=== PATIENT | male | born 1980 | race Caucasian/White ===

== ENCOUNTER 2022-09-17 20:40 | Inpatient (IN) | payer OTHER, SELFPAY ==
[2022-09-17 20:59] VITALS: BP 145/82; PULSE 80; RESP 18; TEMP 36.6; O2SAT 96; BMI 35.9
[2022-09-17 21:46] LABS: Hemoglobin 13.3 g/dl (14.0-18.0); Mean Corpuscular HGB Conc 32.4 g/dl (31.0-36.0); Mean Corpuscular Hemoglobin 27.4 pg (27.0-33.0); Mean Corpuscular Volume 84.4 fL (80.0-98.0); Mean Platelet Volume 8.8 fL (9.4-12.4); Platelet Count 255 X10*3/uL (160-400); Red Blood Count 4.86 X10*6/uL (4.60-5.80); Red Cell Distribution Width 14.8 % (11.0-16.0); White Blood Count 8.8 X10*3/uL (4.8-10.8)
[2022-09-17 22:03] LABS: Anion Gap 14 (12-20); Blood Urea Nitrogen 17 mg/dL (9-16); Calcium 9.1 mg/dL (8.4-10.2); Carbon Dioxide 24 mmol/L (22-29); Chloride 104 mmol/L (96-108); Creatinine Clr Calc Pharmacy 144.9; Estimated Glomerular Filt Rate > 60; Glucose Random 118 mg/dL (60-115); Potassium 4.1 mmol/L (3.3-5.1); Sodium 138 mmol/L (135-145)
[2022-09-17 22:09] LABS: COVID-19 Test Negative (Negative); IDNOW Serial# 6674DD1D
[2022-09-17 22:17] LABS: Acetaminophen LAB < 17 mcg/mL (<30); Ethanol < 10 mg/dL; Salicylate < 5.0 mg/dL (15-30)
[2022-09-17 22:27] LABS: Amphetamine Screen Urine Not Detected (Not Detect); Barbiturates, Urine Not Detected (Not Detect); Benzodiazepines Screen Urine Not Detected (Not Detect); Cannabinoid Screen Urine POSITIVE (Not Detect); Cocaine Screen Urine Not Detected (Not Detect); Fentanyl, urine Not Detected (Not Detect); Opiate Screen Urine Not Detected (Not Detect); Phencyclidine Screen Urine Not Detected (Not Detect)
[2022-09-17] MEDS: LORazepam 1 MG TABLET 2 MG PO (23:06)
[2022-09-17 23:12] VITALS: BP 161/84; PULSE 82; RESP 16; TEMP 36.9; O2SAT 97
--- NOTE | 2022-09-17 23:44 | PC.NURSE ---
Patient reported anxiety 03/06, provider notified/ordered Ativan 2 mg PO/administered at 2306 pending effect, patient uses CPAP for sleep, charge nurse made aware/finishing department supervisor called okayed to use CPAP in ED POD and patient is on 1:1 for safety protocol, provider notified about CPAP use and okayed to have patientto use his own CPAP machine, med rec completed/pending provider's approval, behavior appropriate, care consult ordered/pending evaluation, will continue to monitor.
--- NOTE | 2022-09-17 23:45 | ED.PSYCH ---
HPI - Psych General Chief Complaint: Psychiatric Symptoms Stated Complaint: Crisis Time Seen by Provider: 09/17/22 21:10 Source: patient Mode of arrival: ambulatory Limitations: no limitations History of Present Illness HPI Narrative: 41-year-old male with history of insomnia, hypertension, sleep apnea, GERD presents for increasing anxiety, depression, suicidal ideations. Patient states he has no suicidal plan at this time. Denies homicidal ideation. Brought in by his . Patient is a reliable historian in tells me he has had chronic anxiety and depression since he has been a teenager. Patient states that he head palpitations, dizziness, trembling this morning when he woke up. Patient states that this happens daily. Patient states he is having visual and auditory hallucinations. Denies tactile hallucinations. Patient denies illicit drug use, however he said he tried marijuana edibles last week and did not like them. Patient states he only drinks socially and does not use tobacco products. Patient lives at home with his and kids and states he feels supported at home. Patient denies chest pain, shortness of breath, headache, nausea, vomiting, diarrhea, fever, chills. Related Data Home Medications Medication Instructions Recorded Confirmed omeprazole 40 mg capsule,delayed 1 cap PO BID 09/17/22 09/17/22 release trazodone 50 mg tablet 2 tab PO BEDTIME PRN Insomnia 09/17/22 09/17/22 venlafaxine 225 mg tablet,extended 1 tab PO DAILY 09/17/22 09/17/22 release 24 hr Allergies Allergy/AdvReac Type Severity Reaction Status Date / Time Histamine H2 Inhibitors Allergy Anxiety Verified 09/17/22 21:03 Review of Systems Review of Systems: Constitutional : No Weight loss, No Fever, No Chills, No Fatigue, No Malaise ENT/Mouth : No sore throat, No Rhinorrhea Eyes: No Eye Pain, No Swelling, No Redness Cardiovascular : No Chest Pain, No SOB, No Dyspnea on Exertion, No Orthopnea, No Edema, No Palpitations Respiratory : No Cough, No Sputum, No Wheezing Gastrointestinal : No Nausea, No Vomiting, No Diarrhea, No Constipation, No abdominal Pain, No Hematochezia, No Melena Genitourinary : No Dysuria, No Urinary Frequency, No Hematuria, Musculoskeletal : No joint pain, No Myalgias, No Joint Swelling Skin : No Skin Lesions, No rash Neuro : No Weakness, No Numbness, No Dizziness, No Headache Psych : + Anxiety/Panic, + Depression All other systems reviewed and are negative Yes all other systems are reviewed and are negative [facility] Past Medical History Attestation statement: The following information was validated with the patient. Source: old records reviewed and nursing notes reviewed Social History Social History Advance Directives: No Advance Directives Information Provided: Yes Physical Exam Vital Signs: Vital Signs: Last Vital Signs Temp 98.5 F 09/17/22 23:12 Pulse 82 09/17/22 23:12 Resp 16 09/17/22 23:12 BP 161/84 H 09/17/22 23:12 Pulse Ox 97 09/17/22 23:12 O2 Del Method 09/17/22 23:12 BMI result Body Mass Index 35.9 vss Appearance: Alert.? Oriented X3.? No acute distress.? Head: Normocephalic, atraumatic, no step-offs or deformities Eyes: Pupils equal, round and reactive to light.? Neck: Normal inspection.? Neck supple.? CVS: Normal heart rate and rhythm.? Pulses normal.? Respiratory: No respiratory distress.? Breath sounds normal.? Abdomen: Soft and nontender.? Skin: Skin warm and dry.? Normal skin color.? Normal skin turgor.? Extremities: No calf ttp. 5/5 strength to bilateral upper and lower extremities Neuro: Oriented X 3.? No motor deficit.? No sensory deficit. CN 2-12 intact Course Reevaluation(s) Reevaluation #1: Normocytic anemia noted on CBC with no other findings. Chemistry with no new abnormalities that would require intervention. I wanted checked in the area negative for acetaminophen salicylates and ethanol. COVID negative At this time patient will be placed in observation as we will be allowing Behavioral Health more time to see him. At time of observation started patient was calm and cooperative with stable vital signs. Time: 00:24 Medications Administered Discontinued Medications Generic Name Dose Route Start Last Admin Trade Name Freq PRN Reason Stop Dose Admin Lorazepam 2 mg 09/17/22 22:58 09/17/22 23:06 Lorazepam 1 Mg Tablet PO 09/17/22 22:59 2 mg ONCE STA Administration Medical Decision Making Medical Decision Making MDM Narrative: 41-year-old male presenting with suicidal ideations, anxiety, and panic. Physical exam benign Likely panic attack versus anxiety. Less likely electrolyte imbalances, metabolic disturbances Plan: Labs, medical clearance, evaluation by the care team Differential Diagnosis Differential Diagnoses: The differential diagnosis associated with the presentation includes Likely panic attack versus anxiety. Less likely electrolyte imbalances, metabolic disturbances Admission/Observation Consideration of admission/observation: Escalation of care including admission/observation considered Admission unlikely Lab Data MDM Lab Attestation statement: I reviewed the patient's lab results. 09/17/22 21:37 09/17/22 21:37 Labs: Lab Results 09/17/22 09/17/22 09/17/22 Range/Units 21:37 21:37 21:37 WBC 8.8 (4.8-10.8) X10*3/uL RBC 4.86 (4.60-5.80) X10*6/uL Hgb 13.3 L (14.0-18.0) g/dl Hct 41.0 L (42.0-52.0) % MCV 84.4 (80.0-98.0) fL MCH 27.4 (27.0-33.0) pg MCHC 32.4 (31.0-36.0) g/dl RDW 14.8 (11.0-16.0) % Plt Count 255 (160-400) X10*3/uL MPV 8.8 L (9.4-12.4) fL Absolute Nucleated RBC 0.000 (0.0-0.012) X10*3/uL Nucleated RBC % (auto) 0.0 (0.0-0.2) /100WBC Sodium 138 (135-145) mmol/L Potassium 4.1 (3.3-5.1) mmol/L Chloride 104 (96-108) mmol/L Carbon Dioxide 24 (22-29) mmol/L Anion Gap 14 (12-20) BUN 17 H (9-16) mg/dL Creatinine 0.95 (0.5-1.4) mg/dL Estim Creat Clear Calc 144.9 Estimated GFR > 60 Random Glucose 118 H (60-115) mg/dL Calcium 9.1 (8.4-10.2) mg/dL Salicylates (15-30) mg/dL Urine Opiates Screen (Not Detect) Urine Fentanyl Screen (Not Detect) Acetaminophen (<30) mcg/mL Ur Barbiturates Screen (Not Detect) Ur Phencyclidine Scrn (Not Detect) Ur Amphetamines Screen (Not Detect) U Benzodiazepines Scrn (Not Detect) Urine Cocaine Screen (Not Detect) U Marijuana (THC) Screen (Not Detect) Ethyl Alcohol mg/dL COVID-19 ([place]) Negative (Negative) COVID-19 Clin Com See Note 09/17/22 09/17/22 Range/Units 21:37 22:04 WBC (4.8-10.8) X10*3/uL RBC (4.60-5.80) X10*6/uL Hgb (14.0-18.0) g/dl Hct (42.0-52.0) % MCV (80.0-98.0) fL MCH (27.0-33.0) pg MCHC (31.0-36.0) g/dl RDW (11.0-16.0) % Plt Count (160-400) X10*3/uL MPV (9.4-12.4) fL Absolute Nucleated RBC (0.0-0.012) X10*3/uL Nucleated RBC % (auto) (0.0-0.2) /100WBC Sodium (135-145) mmol/L Potassium (3.3-5.1) mmol/L Chloride (96-108) mmol/L Carbon Dioxide (22-29) mmol/L Anion Gap (12-20) BUN (9-16) mg/dL Creatinine (0.5-1.4) mg/dL Estim Creat Clear Calc Estimated GFR Random Glucose (60-115) mg/dL Calcium (8.4-10.2) mg/dL Salicylates < 5.0 L (15-30) mg/dL Urine Opiates Screen Not Detected (Not Detect) Urine Fentanyl Screen Not Detected (Not Detect) Acetaminophen < 17 (<30) mcg/mL Ur Barbiturates Screen Not Detected (Not Detect) Ur Phencyclidine Scrn Not Detected (Not Detect) Ur Amphetamines Screen Not Detected (Not Detect) U Benzodiazepines Scrn Not Detected (Not Detect) Urine Cocaine Screen Not Detected (Not Detect) U Marijuana (THC) Screen POSITIVE H (Not Detect) Ethyl Alcohol < 10 mg/dL COVID-19 ([place]) (Negative) COVID-19 Clin Com Core Measures AMI core measures followed: Yes Measure exclusions: not indicated Critical Care Time Critical Care Time Critical Care Time: No Discharge Plan Discharge Clinical Impression: Depression, Suicidal ideation, Acute anxiety Patient Disposition: Still a Patient Prescriptions: No Action trazodone 50 mg tablet 2 tab PO BEDTIME PRN (Reason: Insomnia) omeprazole 40 mg capsule,delayed release(DR/EC) 1 cap PO BID venlafaxine 225 mg tablet extended release 24hr 1 tab PO DAILY Interventions: [place]-Suicide Risk Severity Scale Last Done: 09/17/22 23:00
--- NOTE | 2022-09-18 01:49 | MHC.CARE ---
Pt was evaluated by the CARE Team and an Voluntary inpatient bedsearch at this time.
[2022-09-18 08:44] VITALS: BP 160/80; PULSE 81; RESP 17; TEMP 37.1; O2SAT 96
[2022-09-18] MEDS: Venlafaxine HCl ER 75 MG CAP.ER.24H 225 MG PO (10:30)
--- NOTE | 2022-09-18 10:37 | PC.NURSE ---
9 am med just received from pharmacy
[2022-09-18] MEDS: LORazepam 1 MG TABLET 2 MG PO ×2 (10:41→15:28)
--- NOTE | 2022-09-18 14:28 | PC.NURSE ---
Pt c/o anxiety. Reassured pt. Will call admitting unit to see when he will be going up
--- NOTE | 2022-09-18 14:40 | PC.NURSE ---
Report to [facility] on [facility].
[2022-09-18 18:54] VITALS: BP 179/99; PULSE 95; RESP 20; TEMP 36.4; O2SAT 96
[2022-09-18 18:58] VITALS: BMI 51.0
[2022-09-18] MEDS: Omeprazole 40 MG CAPSULE.DR PO (22:25)
[2022-09-18] MEDS: chlorproMAZINE HCl 100 MG TABLET PO (22:25)
--- NOTE | 2022-09-19 00:34 | PC.ADMIT ---
Pt admitted to [facility] [place] [facility] [place] 1830 for increased SI w/worsening depression and anxiety interfering with functioning. Pt reports his venlafaxine was recently increased for depression and since then he has had unmanageable anxiety with racing thoughts, AH/VH, and suicidal thoughts. Pt reports these are new for him; he hears AH of background chatter/indistinguishable voices, as well as footsteps and doors opening, and sees VH of shadows. He reports poor sleep with nightmares, overeating/binge eating, inability to get out of bed or do ADLs. He has no hx substance abuse, rare etoh use. Family hx - sister has bipolar, mother with anxiety, father with depression and ECT treatment. PMhx includes sleep apnea (has CPAP), HTN, GERD, and asthma. Denies current SI/HI/AVH. Pt motivated for treatment and is very grateful for help.
[2022-09-19 06:00] VITALS: BP 154/85; PULSE 91; RESP 16; TEMP 36.6; O2SAT 94
[2022-09-19 07:00] VITALS: BMI 50.5
[2022-09-19] MEDS: Venlafaxine HCl ER 75 MG CAP.ER.24H 225 MG PO (08:42)
[2022-09-19] MEDS: Omeprazole 40 MG CAPSULE.DR PO ×2 (08:42→22:09)
[2022-09-19 09:53] LABS: Estimated Average Glucose 137 mg/dL; Hemoglobin A1c % 6.4 %
[2022-09-19 10:13] LABS: Alanine Aminotransferase 43 U/L (0-40); Albumin Level 4.4 g/dL (3.5-5.0); Alkaline Phosphatase 115 U/L (39-117); Anion Gap 16 (12-20); Aspartate Amino Transferase 23 U/L (5-37); Bilirubin Total 0.5 mg/dL (0.0-1.0); Blood Urea Nitrogen 18 mg/dL (9-16); Calcium 9.2 mg/dL (8.4-10.2); Carbon Dioxide 26 mmol/L (22-29); Chloride 102 mmol/L (96-108); Cholesterol 263 mg/dL; Creatinine Clr Calc Pharmacy 182.5; Estimated Glomerular Filt Rate > 60; Glucose Fasting 151 mg/dL (60-99); HDL Cholesterol 41 mg/dL; LDL Cholesterol Calculated 176 mg/dl; Potassium 4.4 mmol/L (3.3-5.1); Sodium 140 mmol/L (135-145); Triglycerides 231 mg/dL
--- NOTE | 2022-09-19 10:32 | P.HPPS_ITS ---
HPI Date of Service: 09/19/22 Chief Complaint: Crisis Sources of Information: patient interviewed, chart reviewed and crisis/core team assessment reviewed HPI Subjective Notes: [place] Warning (given and shows understanding) and Conditional Voluntary Narrative: Mr. Duke is a 41 year-old male with hx of MDD who self presented to [facility] reporting increase anxiety, racing thoughts, suicidal ideation with fleeting thoughts of cutting himself. He also reported seeing shadows which he was aware were not there whic is new for the past 1 month or so on and off. He reports using edibles, but more than a month ago. He also reports recent increase in Effexor to 225mg po daily 3-4 weeks ago, which in turn seemed to have increase his anxiety. His utox is positive for cannabis. On the unit, pt presents as very anxious and restless. He reports poor sleep and poor appetite. He reports not feeling comfortable being in milieu as he is feeling restless but states that when he tried to lay down in bed he starts having racing thoughts. He reports anxious mood and restlessness seems to trigger suicidal thoughts more than the depression. He denies VH/AH now, but states few days ago he thought he was seeing someone but then turned and it wasn't there. He denies any other substance use. He reports he has not had suicidal thoughts since he was a teen. He denies hx of suicide attempts. He was laid off his job but states he is positive he will find a new one once he feels better. He reports his is very supportive, no other sources of stress although struggling financially after he lost his job. Past Psychiatric History: Inpt: none OP: [facility] Past medication trials: wellbutrin, effexor, seroquel (RLS) Suicide attempt: denies Medical Evaluation Reviewed: Yes Diagnostics Vital Signs (24Hr): Vital Signs - 24 hr 09/18/22 18:54 09/19/22 06:00 Temperature 97.6 F 97.8 F Pulse Rate 95 91 Respiratory Rate 20 16 Blood Pressure 179/99 H 154/85 H Pulse Oximetry 96 94 Oxygen Delivery Method Room Air Room Air BMI result Body Mass Index 50.5 Labs 09/17/22 21:37 09/19/22 09:25 Labs: Laboratory Results - last 48 hr 09/17/22 09/17/22 09/17/22 21:37 21:37 21:37 WBC 8.8 RBC 4.86 Hgb 13.3 L Hct 41.0 L MCV 84.4 MCH 27.4 MCHC 32.4 RDW 14.8 Plt Count 255 MPV 8.8 L Absolute Nucleated RBC 0.000 Nucleated RBC % (auto) 0.0 Sodium 138 Potassium 4.1 Chloride 104 Carbon Dioxide 24 Anion Gap 14 BUN 17 H Creatinine 0.95 Estim Creat Clear Calc 144.9 Estimated GFR > 60 Random Glucose 118 H Fasting Glucose Estimat Average Glucose Hemoglobin A1c % Calcium 9.1 Total Bilirubin AST ALT Alkaline Phosphatase Total Protein Albumin Triglycerides Cholesterol LDL Cholesterol, Calc HDL Cholesterol Salicylates Urine Opiates Screen Urine Fentanyl Screen Acetaminophen Ur Barbiturates Screen Ur Phencyclidine Scrn Ur Amphetamines Screen U Benzodiazepines Scrn Urine Cocaine Screen U Marijuana (THC) Screen Ethyl Alcohol COVID-19 ([place]) Negative COVID-19 [employer] Com See Note 09/17/22 09/17/22 09/19/22 21:37 22:04 09:25 WBC RBC Hgb Hct MCV MCH MCHC RDW Plt Count MPV Absolute Nucleated RBC Nucleated RBC % (auto) Sodium 140 Potassium 4.4 Chloride 102 Carbon Dioxide 26 Anion Gap 16 BUN 18 H Creatinine 0.91 Estim Creat Clear Calc 182.5 Estimated GFR > 60 Random Glucose Fasting Glucose 151 H Estimat Average Glucose Hemoglobin A1c % Calcium 9.2 Total Bilirubin 0.5 AST 23 ALT 43 H Alkaline Phosphatase 115 Total Protein 7.0 Albumin 4.4 Triglycerides 231 Cholesterol 263 LDL Cholesterol, Calc 176 HDL Cholesterol 41 Salicylates < 5.0 L Urine Opiates Screen Not Detected Urine Fentanyl Screen Not Detected Acetaminophen < 17 Ur Barbiturates Screen Not Detected Ur Phencyclidine Scrn Not Detected Ur Amphetamines Screen Not Detected U Benzodiazepines Scrn Not Detected Urine Cocaine Screen Not Detected U Marijuana (THC) Screen POSITIVE H Ethyl Alcohol < 10 COVID-19 ([place]) [employer] Com 09/19/22 09:25 WBC RBC Hgb Hct MCV MCH MCHC RDW Plt Count MPV Absolute Nucleated RBC Nucleated RBC % (auto) Sodium Potassium Chloride Carbon Dioxide Anion Gap BUN Creatinine Estim Creat Clear Calc Estimated GFR Random Glucose Fasting Glucose Estimat Average Glucose 137 Hemoglobin A1c % 6.4 Calcium Total Bilirubin AST ALT Alkaline Phosphatase Total Protein Albumin Triglycerides Cholesterol LDL Cholesterol, Calc HDL Cholesterol Salicylates Urine Opiates Screen Urine Fentanyl Screen Acetaminophen Ur Barbiturates Screen Ur Phencyclidine Scrn Ur Amphetamines Screen U Benzodiazepines Scrn Urine Cocaine Screen U Marijuana (THC) Screen Ethyl Alcohol COVID-19 ([place]) COVID-19 Clin Com Meds/Allergies Meds Home Medications Medication Instructions Recorded Confirmed Type omeprazole 40 mg capsule,delayed 1 cap PO BID 09/17/22 09/17/22 History release trazodone 50 mg tablet 2 tab PO BEDTIME PRN Insomnia 09/17/22 09/17/22 History venlafaxine 225 mg tablet,extended 1 tab PO DAILY 09/17/22 09/17/22 History release 24 hr lisinopril 40 mg tablet 40 mg PO DAILY 09/19/22 09/19/22 History Allergies Allergies Allergy/AdvReac Type Severity Reaction Status Date / Time Histamine H2 Inhibitors Allergy Anxiety Verified 09/17/22 21:03 quetiapine [From Seroquel] AdvReac Intermediate RLS Verified 09/19/22 10:44 Mental Status Exam Mental Status Exam Narrative: Appearance: MO, casually groomed, fair hygiene in NAD Behavior: cooperative Psychomotor: no agitation or retardation noted Speech: clear, normal rate/rhythm/volume, spontaneous TP: linear TC: no signs of psychosis, feeling anxious and restless Mood: anxious Affect: congruent SI: passive HI: none AH/VH: not at the moment Delusions: none Insight/judgment: fair x 2. Memory/cog: alert, oriented x 3. Assessment & Plan Assessment & Plan (1) Mood disorder: Status: Acute Code(s): F39 - Unspecified mood [affective] disorder Plan Mr. Duke is a 41 year-old male with hx of MDD who has been presenting with increase anxious mood, restless, some visual hallucinations which he is aware are not there, increase depression and suicidal ideation in setting of recent increase of effexor and cannabinoid use (although pt reports over month ago). He was laid off his job in July and is having financial stressors. He reports is mostly anxious mood and restless triggering suicidal thoughts, which he thinks may be more related to increase in effexor. We discussed risks, benefits and alternative treatment options. He agreed to lower effexor back to 150mg po daily. Will add ativan prn as anxiety and restlessness more in control. PLAN 1. Admit to M3, CV, 15 minutes checks for safety 2. lower effexor to 150mg po daily. 3. add ativan 1mg po q4h prn anxious mood 4. Obtain collateral information 5. Aftercare planning. Patient educated on: diagnosis Reason for continued inpatient stay Substantial Risk for: harm to self and inability to function Statement Statement: I have reviewed the history and physical and performed a pertinent examination on my patient. No changes have occurred unless specified. If the History and Physical was not performed prior to admission, the Hospitalist's service will be consulted for completing the admission physical. Time Spent With Patient Time: Total time managing care of this patient today ____ minutes.
[2022-09-19 10:43] LABS: Folate 15.2 ng/mL (> or = 4.0); Thyroid Stimulating Hormone 1.32 uIU/mL (0.32-4.0); Vitamin B12 642 pg/mL (200-900)
[2022-09-19] MEDS: LORazepam 1 MG TABLET 2 MG PO (11:29)
[2022-09-19] MEDS: LORazepam 1 MG TABLET PO ×2 (17:38→20:01)
[2022-09-19] MEDS: chlorproMAZINE HCl 100 MG TABLET PO (22:09)
[2022-09-20 08:33] VITALS: BP 161/104; PULSE 82; RESP 18; TEMP 36.6; O2SAT 95
[2022-09-20] MEDS: Venlafaxine HCl ER 150 MG CAP.ER.24H PO (08:34)
[2022-09-20] MEDS: Omeprazole 40 MG CAPSULE.DR PO ×2 (08:34→21:35)
[2022-09-20] MEDS: LORazepam 1 MG TABLET PO ×4 (09:49→23:29)
--- NOTE | 2022-09-20 14:34 | HO.PSYCHPN ---
Subjective Subjective Date of Service: 09/20/22 Reason For Visit: Crisis Subjective Notes: Conditional Voluntary Interim History: Pt reports feeling less anxious. He reports he was able to sleep only during time that there was one to one and he was able to use CPAP. He denies SI/HI. No VH/AH. He reports he stills wakes up feeling very anxious and distress and feeling restless. He reports ativan works. Review of Systems Review of Systems Constitutional : No Weight loss, No Fever, No Chills, No Fatigue, No Malaise ENT/Mouth : No sore throat, No Rhinorrhea Eyes: No Eye Pain, No Swelling, No Redness Cardiovascular : No Chest Pain, No SOB, No Dyspnea on Exertion, No Orthopnea, No Edema, No Palpitations Respiratory : No Cough, No Sputum, No Wheezing Gastrointestinal : No Nausea, No Vomiting, No Diarrhea, No Constipation, No abdominal Pain, No Hematochezia, No Melena Genitourinary : No Dysuria, No Urinary Frequency, No Hematuria, Musculoskeletal : No joint pain, No Myalgias, No Joint Swelling Skin : No Skin Lesions, No rash Neuro : No Weakness, No Numbness, No Dizziness, No Headache Psych : + Anxiety/Panic, + Depression All other systems reviewed and are negative Yes all other systems are reviewed and are negative Mental Status Exam Mental Status Exam Narrative: Appearance: MO, casually groomed, fair hygiene in NAD Behavior: cooperative Psychomotor: no agitation or retardation noted Speech: clear, normal rate/rhythm/volume, spontaneous TP: linear TC: no signs of psychosis, feeling anxious and restless Mood: anxious Affect: congruent SI: passive HI: none AH/VH: not at the moment Delusions: none Insight/judgment: fair x 2. Memory/cog: alert, oriented x 3. Diagnostics Vital Signs (24Hr): Vital Signs - 24 hr 09/20/22 08:33 Temperature 97.8 F Pulse Rate 82 Respiratory Rate 18 Blood Pressure 161/104 H Pulse Oximetry 95 Oxygen Delivery Method Room Air BMI result Body Mass Index 50.5 Labs 09/17/22 21:37 09/19/22 09:25 Labs: Laboratory Results - last 48 hr 09/19/22 09/19/22 09:25 09:25 Sodium 140 Potassium 4.4 Chloride 102 Carbon Dioxide 26 Anion Gap 16 BUN 18 H Creatinine 0.91 Estim Creat Clear Calc 182.5 Estimated GFR > 60 Fasting Glucose 151 H Estimat Average Glucose 137 Hemoglobin A1c % 6.4 Calcium 9.2 Total Bilirubin 0.5 AST 23 ALT 43 H Alkaline Phosphatase 115 Total Protein 7.0 Albumin 4.4 Triglycerides 231 Cholesterol 263 LDL Cholesterol, Calc 176 HDL Cholesterol 41 Vitamin B12 642 Folate 15.2 TSH 1.32 Medications Medications Current Medications Acetaminophen (Acetaminophen 325 Mg Tablet) 650 mg PO Q6H PRN PRN Reason: Headache/Pain Mild Scale (1-3) Al Hydroxide/Mg Hydroxide (Magnesium Hydrox/Alum Hydrox 30 Ml Oral.Susp) 30 ml PO Q6H PRN PRN Reason: Heartburn/Nausea Albuterol Sulfate (Albuterol Sulfate 90 Mcg 8 Gm Inhaler) 1 puff INHALE RQ4H PRN PRN Reason: wheezing/SOB Chlorpromazine HCl (Chlorpromazine Hcl 100 Mg Tablet) 100 mg PO BEDTIME [facility] Last Admin: 09/19/22 22:09 Dose: 100 mg Hydroxyzine HCl (Hydroxyzine Hcl 25 Mg Tablet) 25 mg PO Q6H PRN PRN Reason: Anxiety Lorazepam (Lorazepam 1 Mg Tablet) 1 mg PO Q6H PRN PRN Reason: Anxiety Last Admin: 09/20/22 16:20 Dose: 1 mg Magnesium Hydroxide (Milk Of Magnesia 30 Ml Oral.Susp) 30 ml PO DAILY PRN PRN Reason: Constipation Omeprazole (Omeprazole 40 Mg Capsule.Dr) 40 mg PO BID@0730,2100 [facility] Last Admin: 09/20/22 08:34 Dose: 40 mg Trazodone HCl (Trazodone Hcl 100 Mg Tablet) 100 mg PO BEDTIME PRN PRN Reason: Insomnia Trazodone HCl (Trazodone Hcl 50 Mg Tablet) 50 mg PO BEDTIME PRN PRN Reason: Insomnia Venlafaxine HCl (Venlafaxine Hcl Er 75 Mg Cap.Er.24h) 75 mg PO DAILY [facility] Allergies Allergies Allergy/AdvReac Type Severity Reaction Status Date / Time Histamine H2 Inhibitors Allergy Anxiety Verified 09/17/22 21:03 quetiapine [From Seroquel] AdvReac Intermediate RLS Verified 09/19/22 10:44 Assessment & Plan Assessment & Plan (1) Mood disorder: Status: Acute Code(s): F39 - Unspecified mood [affective] disorder Plan Mr. Duke is a 41 year-old male with hx of MDD who has been presenting with increase anxious mood, restless, some visual hallucinations which he is aware are not there, increase depression and suicidal ideation in setting of recent increase of effexor and cannabinoid use (although pt reports over month ago). He was laid off his job in July and is having financial stressors. He reports is mostly anxious mood and restless triggering suicidal thoughts, which he thinks may be more related to increase in effexor. We discussed risks, benefits and alternative treatment options. He agreed to lower effexor back to 150mg po daily. Will add ativan prn as anxiety and restlessness more in control. PLAN 1. Admit to M3, CV, 15 minutes checks for safety 2. lower effexor to 150mg po daily. 3. add ativan 1mg po q4h prn anxious mood 4. Obtain collateral information 5. Aftercare planning. 09/20 continue taper off effexor as pt reports increase anxiety and restless. May consider different antidepressant pt states his OP provider considering bipolar type 2 dx. Reason for contiued inpatient stay Substantial Risk for: harm to self Time Spent With Patient Time: Total time managing care of this patient today ____ minutes.
[2022-09-20] MEDS: chlorproMAZINE HCl 100 MG TABLET PO (21:35)
[2022-09-20 21:55] VITALS: BP 166/82; PULSE 97; TEMP 36.6; O2SAT 97
[2022-09-21 06:00] VITALS: BP 170/106; PULSE 98; TEMP 36.7; O2SAT 97
[2022-09-21] MEDS: Omeprazole 40 MG CAPSULE.DR PO ×2 (08:55→20:54)
[2022-09-21] MEDS: LORazepam 1 MG TABLET PO ×3 (08:55→20:54)
[2022-09-21] MEDS: Venlafaxine HCl ER 75 MG CAP.ER.24H PO (08:55)
--- NOTE | 2022-09-21 09:00 | PC.NURSE ---
patient has lisinopril 40mg added to medication regimine.
[2022-09-21] MEDS: lisinopriL 40 MG TABLET PO (09:11)
[2022-09-21 12:14] VITALS: BP 132/84
[2022-09-21] MEDS: cloNIDine HCL 0.1 MG TABLET PO (15:02)
--- NOTE | 2022-09-21 19:49 | HO.PSYCHPN ---
Subjective Subjective Date of Service: 09/21/22 Reason For Visit: Crisis Interim History: anxious, wordy. c/o seroquel and remeron having caused akathisia. had bad akathisia last night, when hears thorazine has antihistamine activity decides he cannot take it, ever at a lower dose. discussion held around other options, not interested in controlled substances. pt agrees to trial of clonidine for anxiety, sleep, HTN, as it has no anti-histamine activity. also discuss his expectations around starting primary Tx for his stated Dx of bipolar disorder, which MD managed to defer until his attending returns on friday. per staff, very anxious, upset night prior to last re lack of CPAP, was demanding to leave immediately. eating well, visible, safe. c/o RLS last night. Mental Status Exam Mental Status Exam Narrative: Appearance: MO, casually groomed, fair hygiene in NAD Behavior: cooperative Psychomotor: no agitation or retardation noted Speech: clear, normal rate/rhythm/volume, spontaneous TP: linear TC: no signs of psychosis, feeling anxious and restless Mood: anxious Affect: congruent SI: passive HI: none AH/VH: not at the moment Delusions: none Insight/judgment: fair x 2. Memory/cog: alert, oriented x 3. Diagnostics Vital Signs (24Hr): Vital Signs - 24 hr 09/20/22 21:55 09/21/22 06:00 09/21/22 12:14 Temperature 97.8 F 98.1 F Pulse Rate 97 98 Blood Pressure 166/82 H 170/106 H 132/84 Pulse Oximetry 97 97 Oxygen Delivery Method Room Air Room Air BMI result Body Mass Index 50.5 Labs 09/17/22 21:37 09/19/22 09:25 Medications Medications Current Medications Acetaminophen (Acetaminophen 325 Mg Tablet) 650 mg PO Q6H PRN PRN Reason: Headache/Pain Mild Scale (1-3) Al Hydroxide/Mg Hydroxide (Magnesium Hydrox/Alum Hydrox 30 Ml Oral.Susp) 30 ml PO Q6H PRN PRN Reason: Heartburn/Nausea Albuterol Sulfate (Albuterol Sulfate 90 Mcg 8 Gm Inhaler) 1 puff INHALE RQ4H PRN PRN Reason: wheezing/SOB Chlorpromazine HCl (Chlorpromazine Hcl 25 Mg Tablet) 12.5 mg PO Q4H PRN PRN Reason: severe anxiety Clonidine HCl (Clonidine Hcl 0.1 Mg Tablet) 0.1 mg PO BID@0900,1500 [facility]; Protocol Last Admin: 09/21/22 15:02 Dose: 0.1 mg Clonidine HCl (Clonidine Hcl 0.2 Mg Tablet) 0.2 mg PO BEDTIME [facility]; Protocol Lorazepam (Lorazepam 1 Mg Tablet) 1 mg PO Q6H PRN PRN Reason: Anxiety Last Admin: 09/21/22 15:06 Dose: 1 mg Magnesium Hydroxide (Milk Of Magnesia 30 Ml Oral.Susp) 30 ml PO DAILY PRN PRN Reason: Constipation Omeprazole (Omeprazole 40 Mg Capsule.Dr) 40 mg PO BID@0730,2100 [facility] Last Admin: 09/21/22 08:55 Dose: 40 mg Trazodone HCl (Trazodone Hcl 100 Mg Tablet) 100 mg PO BEDTIME PRN PRN Reason: Insomnia Trazodone HCl (Trazodone Hcl 50 Mg Tablet) 50 mg PO BEDTIME PRN PRN Reason: Insomnia Venlafaxine HCl (Venlafaxine Hcl Er 75 Mg Cap.Er.24h) 75 mg PO DAILY [facility] Last Admin: 09/21/22 08:55 Dose: 75 mg Allergies Allergies Allergy/AdvReac Type Severity Reaction Status Date / Time Histamine H2 Inhibitors Allergy Anxiety Verified 09/17/22 21:03 quetiapine [From Seroquel] AdvReac Intermediate RLS Verified 09/19/22 10:44 Assessment & Plan Assessment & Plan (1) Mood disorder: Status: Acute Code(s): F39 - Unspecified mood [affective] disorder Plan Mr. Duke is a 41 year-old male with hx of MDD who has been presenting with increase anxious mood, restless, some visual hallucinations which he is aware are not there, increase depression and suicidal ideation in setting of recent increase of effexor and cannabinoid use (although pt reports over month ago). He was laid off his job in July and is having financial stressors. He reports is mostly anxious mood and restless triggering suicidal thoughts, which he thinks may be more related to increase in effexor. We discussed risks, benefits and alternative treatment options. He agreed to lower effexor back to 150mg po daily. Will add ativan prn as anxiety and restlessness more in control. PLAN 1. Admit to M3, CV, 15 minutes checks for safety 2. lower effexor to 150mg po daily. 3. add ativan 1mg po q4h prn anxious mood 4. Obtain collateral information 5. Aftercare planning. 09/20 continue taper off effexor as pt reports increase anxiety and restless. May consider different antidepressant pt states his OP provider considering bipolar type 2 dx. 09/21: akathisia from thorazine 100 at HS. DC thorazine 100 and start clonidine 0.1/0.1/0.2 for BP, insomnia, anxiety. DC lisinopril for now. Patient educated on: diagnosis, medication risk/benefits and medical condition Reason for contiued inpatient stay Substantial Risk for: inability to function and rapid decompensation Time Spent With Patient Time: Total time managing care of this patient today __35__ minutes.
[2022-09-21] MEDS: Albuterol Sulfate 90 MCG 8 GM INHALER 1 PUFF INHALE (20:53)
[2022-09-21] MEDS: cloNIDine HCL 0.2 MG TABLET PO (20:54)
[2022-09-21 21:16] VITALS: BP 145/92; PULSE 101; TEMP 36.3; O2SAT 100
[2022-09-22 06:00] VITALS: BP 160/84; PULSE 88; RESP 18; TEMP 36.6; O2SAT 96
[2022-09-22] MEDS: Venlafaxine HCl ER 75 MG CAP.ER.24H PO (08:03)
[2022-09-22] MEDS: Omeprazole 40 MG CAPSULE.DR PO ×2 (08:03→21:42)
[2022-09-22] MEDS: cloNIDine HCL 0.1 MG TABLET PO ×2 (08:03→14:17)
[2022-09-22] MEDS: LORazepam 1 MG TABLET PO ×4 (08:03→21:46)
[2022-09-22 12:41] VITALS: BP 140/82; PULSE 88
[2022-09-22] MEDS: cloNIDine HCL 0.1 MG TABLET 0.05 MG PO (13:09)
--- NOTE | 2022-09-22 16:18 | P.PNPSI_ITS ---
Subjective Subjective Date of Service: 09/22/22 Reason For Visit: Crisis Interim History: calm, cooperative. c/o ongoing anxiety, denies clonidine making him tired during the day. agreeable to increase clonidine to 0.15 BID and 0.2 at bedtime. states he fell asleep and slept well last night. c/o panic attacks during the day, asking for more frequent ativan. dosing changed from Q6H to be Q4H. per staff, pleasant. no dep, 5/10 anx yesterday. social at dinner. panic attack last NOC. felt well until noon today, when anxiety began to build. Mental Status Exam Mental Status Exam Narrative: Appearance: MO, casually groomed, fair hygiene in NAD Behavior: cooperative Psychomotor: no agitation or retardation noted Speech: clear, normal rate/rhythm/volume, spontaneous TP: linear TC: no signs of psychosis, feeling anxious and restless Mood: anxious Affect: congruent SI: passive HI: none AH/VH: not at the moment Delusions: none Insight/judgment: fair x 2. Memory/cog: alert, oriented x 3. Diagnostics Vital Signs (24Hr): Vital Signs - 24 hr 09/21/22 21:16 09/22/22 06:00 09/22/22 12:41 Temperature 97.3 F 97.8 F Pulse Rate 101 H 88 88 Respiratory Rate 18 Blood Pressure 145/92 H 160/84 H 140/82 H Pulse Oximetry 100 96 Oxygen Delivery Method Room Air Room Air BMI result Body Mass Index 50.5 Labs 09/17/22 21:37 09/19/22 09:25 Medications Medications Current Medications Acetaminophen (Acetaminophen 325 Mg Tablet) 650 mg PO Q6H PRN PRN Reason: Headache/Pain Mild Scale (1-3) Al Hydroxide/Mg Hydroxide (Magnesium Hydrox/Alum Hydrox 30 Ml Oral.Susp) 30 ml PO Q6H PRN PRN Reason: Heartburn/Nausea Albuterol Sulfate (Albuterol Sulfate 90 Mcg 8 Gm Inhaler) 1 puff INHALE RQ4H PRN PRN Reason: wheezing/SOB Last Admin: 09/21/22 20:53 Dose: 1 puff Chlorpromazine HCl (Chlorpromazine Hcl 25 Mg Tablet) 12.5 mg PO Q4H PRN PRN Reason: severe anxiety Clonidine HCl (Clonidine Hcl 0.2 Mg Tablet) 0.2 mg PO BEDTIME [facility]; Protocol Last Admin: 09/21/22 20:54 Dose: 0.2 mg Clonidine HCl (Clonidine Hcl 0.1 Mg Tablet) 0.15 mg PO BID@0900,1500 [facility]; Protocol Lorazepam (Lorazepam 1 Mg Tablet) 1 mg PO Q4H PRN PRN Reason: Anxiety Magnesium Hydroxide (Milk Of Magnesia 30 Ml Oral.Susp) 30 ml PO DAILY PRN PRN Reason: Constipation Omeprazole (Omeprazole 40 Mg Capsule.Dr) 40 mg PO BID@0730,2100 [facility] Last Admin: 09/22/22 08:03 Dose: 40 mg Trazodone HCl (Trazodone Hcl 100 Mg Tablet) 100 mg PO BEDTIME PRN PRN Reason: Insomnia Trazodone HCl (Trazodone Hcl 50 Mg Tablet) 50 mg PO BEDTIME PRN PRN Reason: Insomnia Venlafaxine HCl (Venlafaxine Hcl Er 75 Mg Cap.Er.24h) 75 mg PO DAILY [facility] Last Admin: 09/22/22 08:03 Dose: 75 mg Allergies Allergies Allergy/AdvReac Type Severity Reaction Status Date / Time Histamine H2 Inhibitors Allergy Anxiety Verified 09/17/22 21:03 quetiapine [From Seroquel] AdvReac Intermediate RLS Verified 09/19/22 10:44 Assessment & Plan Assessment & Plan (1) Mood disorder: Status: Acute Code(s): F39 - Unspecified mood [affective] disorder Plan Mr. Duke is a 41 year-old male with hx of MDD who has been presenting with increase anxious mood, restless, some visual hallucinations which he is aware are not there, increase depression and suicidal ideation in setting of recent increase of effexor and cannabinoid use (although pt reports over month ago). He was laid off his job in July and is having financial stressors. He reports is mostly anxious mood and restless triggering suicidal thoughts, which he thinks may be more related to increase in effexor. We discussed risks, benefits and alternative treatment options. He agreed to lower effexor back to 150mg po daily. Will add ativan prn as anxiety and restlessness more in control. PLAN 1. Admit to M3, CV, 15 minutes checks for safety 2. lower effexor to 150mg po daily. 3. add ativan 1mg po q4h prn anxious mood 4. Obtain collateral information 5. Aftercare planning. 09/20 continue taper off effexor as pt reports increase anxiety and restless. May consider different antidepressant pt states his OP provider considering bipolar type 2 dx. 09/21: akathisia from thorazine 100 at HS. DC thorazine 100 and start clonidine 0.1/0.1/0.2 for BP, insomnia, anxiety. DC lisinopril for now. 09/22: slept well on clonidine 0.2 at bedtime. still anxious with 0.1 BID; increase to 0.15 BID. also decrease interval for ativan from Q6H to Q4H at pt request. otherwise continue current mgmt. Reason for contiued inpatient stay Substantial Risk for: inability to function and rapid decompensation Time Spent With Patient Time: Total time managing care of this patient today ____ minutes.
[2022-09-22 21:40] VITALS: BP 135/87; PULSE 98; RESP 18; TEMP 36.4; O2SAT 96
[2022-09-22] MEDS: cloNIDine HCL 0.2 MG TABLET PO (21:42)
[2022-09-23 08:07] VITALS: BP 169/100; PULSE 81; TEMP 36.6; O2SAT 97
[2022-09-23] MEDS: cloNIDine HCL 0.1 MG TABLET 0.15 MG PO ×2 (08:12→15:37)
[2022-09-23] MEDS: Omeprazole 40 MG CAPSULE.DR PO ×2 (08:12→22:22)
[2022-09-23] MEDS: Lithium Carbonate ER 300 MG TABLET.ER 600 MG PO ×2 (11:45→22:22)
[2022-09-23] MEDS: LORazepam 1 MG TABLET PO ×3 (11:45→22:22)
[2022-09-23] MEDS: Venlafaxine HCl ER 37.5 MG CAP.ER.24H PO (11:46)
[2022-09-23] MEDS: Metoprolol Succinate ER 12.5 MG HALFTAB.ER.24H PO (11:56)
--- NOTE | 2022-09-23 14:22 | HO.PSYCHPN ---
Subjective Subjective Date of Service: 09/23/22 Reason For Visit: Crisis Interim History: calm, cooperative. states he slept very well last night. was on wellbutrin for a long time, not effective. also zoloft and citalopram trials. sister with bipolar I on lithium, hypersomnia with depression, worsened anxiety/panic Sx with SNRI. continue to taper SNRI. clonidine perhaps helpful for anxiety but pt reports he has also been taking ativan very regularly. feeling a bit heavy and foggy in the head this morning. R/B of lithium discussed, pt agrees to trial of lithium. start 600 BID. BP remains elevated on clonidine, will add metoprolol 12.5 now, titrate as indicated. per staff, panic attack early afternoon yesterday. slept well last night. good appatite. getting ativan PRN. asking for hydrox, traz, thorazine to be DCed. Mental Status Exam Mental Status Exam Narrative: Appearance: MO, casually groomed, fair hygiene in NAD Behavior: cooperative Psychomotor: no agitation or retardation noted Speech: clear, normal rate/rhythm/volume, spontaneous TP: linear TC: no signs of psychosis, feeling anxious and restless Mood: anxious Affect: congruent SI: none expressed HI: none expressed AH/VH: not at the moment Delusions: none Insight/judgment: fair x 2. Memory/cog: alert, oriented x 3. Diagnostics Vital Signs (24Hr): Vital Signs - 24 hr 09/22/22 21:40 09/23/22 08:07 Temperature 97.6 F 97.8 F Pulse Rate 98 81 Respiratory Rate 18 Blood Pressure 135/87 169/100 H Pulse Oximetry 96 97 Oxygen Delivery Method Room Air Room Air BMI result Body Mass Index 50.5 Labs 09/17/22 21:37 09/19/22 09:25 Medications Medications Current Medications Acetaminophen (Acetaminophen 325 Mg Tablet) 650 mg PO Q6H PRN PRN Reason: Headache/Pain Mild Scale (1-3) Al Hydroxide/Mg Hydroxide (Magnesium Hydrox/Alum Hydrox 30 Ml Oral.Susp) 30 ml PO Q6H PRN PRN Reason: Heartburn/Nausea Albuterol Sulfate (Albuterol Sulfate 90 Mcg 8 Gm Inhaler) 1 puff INHALE RQ4H PRN PRN Reason: wheezing/SOB Last Admin: 09/21/22 20:53 Dose: 1 puff Chlorpromazine HCl (Chlorpromazine Hcl 25 Mg Tablet) 12.5 mg PO Q4H PRN PRN Reason: severe anxiety Clonidine HCl (Clonidine Hcl 0.2 Mg Tablet) 0.2 mg PO BEDTIME [facility]; Protocol Last Admin: 09/22/22 21:42 Dose: 0.2 mg Clonidine HCl (Clonidine Hcl 0.1 Mg Tablet) 0.15 mg PO BID@0900,1500 [facility]; Protocol Last Admin: 09/23/22 08:12 Dose: 0.15 mg [place] Carbonate ([place] Carbonate Er 300 Mg Tablet.Er) 600 mg PO BID [facility] Last Admin: 09/23/22 11:45 Dose: 600 mg Lorazepam (Lorazepam 1 Mg Tablet) 1 mg PO Q4H PRN PRN Reason: Anxiety Last Admin: 09/23/22 11:45 Dose: 1 mg Magnesium Hydroxide (Milk Of Magnesia 30 Ml Oral.Susp) 30 ml PO DAILY PRN PRN Reason: Constipation Metoprolol Succinate (Metoprolol Succinate Er 12.5 Mg Halftab.Er.24h) 12.5 mg PO DAILY [facility]; Protocol Last Admin: 09/23/22 11:56 Dose: 12.5 mg Omeprazole (Omeprazole 40 Mg Capsule.Dr) 40 mg PO BID@0730,2100 [facility] Last Admin: 09/23/22 08:12 Dose: 40 mg Trazodone HCl (Trazodone Hcl 100 Mg Tablet) 100 mg PO BEDTIME PRN PRN Reason: Insomnia Trazodone HCl (Trazodone Hcl 50 Mg Tablet) 50 mg PO BEDTIME PRN PRN Reason: Insomnia Venlafaxine HCl (Venlafaxine Hcl Er 37.5 Mg Cap.Er.24h) 37.5 mg PO DAILY [facility] Last Admin: 09/23/22 11:46 Dose: 37.5 mg Allergies Allergies Allergy/AdvReac Type Severity Reaction Status Date / Time Histamine H2 Inhibitors Allergy Anxiety Verified 09/17/22 21:03 quetiapine [From Seroquel] AdvReac Intermediate RLS Verified 09/19/22 10:44 Assessment & Plan Assessment & Plan (1) Mood disorder: Status: Acute Code(s): F39 - Unspecified mood [affective] disorder Plan Mr. Duke is a 41 year-old male with hx of MDD who has been presenting with increase anxious mood, restless, some visual hallucinations which he is aware are not there, increase depression and suicidal ideation in setting of recent increase of effexor and cannabinoid use (although pt reports over month ago). He was laid off his job in July and is having financial stressors. He reports is mostly anxious mood and restless triggering suicidal thoughts, which he thinks may be more related to increase in effexor. We discussed risks, benefits and alternative treatment options. He agreed to lower effexor back to 150mg po daily. Will add ativan prn as anxiety and restlessness more in control. PLAN 1. Admit to M3, CV, 15 minutes checks for safety 2. lower effexor to 150mg po daily. 3. add ativan 1mg po q4h prn anxious mood 4. Obtain collateral information 5. Aftercare planning. 09/20 continue taper off effexor as pt reports increase anxiety and restless. May consider different antidepressant pt states his OP provider considering bipolar type 2 dx. 09/21: akathisia from thorazine 100 at HS. DC thorazine 100 and start clonidine 0.1/0.1/0.2 for BP, insomnia, anxiety. DC lisinopril for now. 09/22: slept well on clonidine 0.2 at bedtime. still anxious with 0.1 BID; increase to 0.15 BID. also decrease interval for ativan from Q6H to Q4H at pt request. otherwise continue current mgmt. 09/23: BP elevated, more clonidine may be too sedating. interested in lithium trial with the hypothesis that the anxiety hs is experiencing may be a manifestation of radha, started at 600 BID today. metoprolol added to regimen for BP control, titrate as indicated. T/C clonidine patch as well. decrease effexor to 37.5 mg daily for the next two days, then DC. Patient educated on: diagnosis, medication risk/benefits and substance abuse Reason for contiued inpatient stay Substantial Risk for: inability to function and rapid decompensation Time Spent With Patient Time: Total time managing care of this patient today _35___ minutes.
--- NOTE | 2022-09-23 15:20 | PC.NURSE ---
At about 1445 patient became increasingly alert, walked out of room, paced in singh, returned to room. When he came out of room shortly after he was increasingly aggressive, charged at staff and stopped approximately one foot from the staff person, then swore and flashed middle finger at staff, returned to room. notified. Minutes later, he did so again, postured at staff, lay on floor, became upset, perseverative re: belongings, he swung at staff member, then attempted to take staff hands and bite them. notified again. Security called. Patient given IM Benadryl and Haldol as ordered with hold only. Patient out of room again after injection but able to be redirected. Pt currently resting in room, sipped water.
[2022-09-23 15:39] VITALS: BP 178/92; PULSE 95
[2022-09-23 22:15] VITALS: BP 148/94; PULSE 85; RESP 18; TEMP 36.3; O2SAT 99
[2022-09-23] MEDS: cloNIDine HCL 0.2 MG TABLET PO (22:22)
[2022-09-24 06:00] VITALS: BP 166/90; PULSE 90; RESP 18; TEMP 36.6; O2SAT 98
[2022-09-24] MEDS: Metoprolol Succinate ER 12.5 MG HALFTAB.ER.24H PO (09:04)
[2022-09-24] MEDS: Omeprazole 40 MG CAPSULE.DR PO ×2 (09:04→22:19)
[2022-09-24] MEDS: cloNIDine HCL 0.1 MG TABLET 0.15 MG PO ×2 (09:04→14:09)
[2022-09-24] MEDS: Lithium Carbonate ER 300 MG TABLET.ER 600 MG PO ×2 (09:04→22:19)
[2022-09-24] MEDS: Venlafaxine HCl ER 37.5 MG CAP.ER.24H PO (09:04)
--- NOTE | 2022-09-24 13:40 | P.PNPSI_ITS ---
Subjective Subjective Date of Service: 09/24/22 Reason For Visit: Crisis Subjective Notes: Conditional Voluntary Interim History: Pt reports feeling much less anxious, less depressed. He reports sleeping well. No SI/HI. So far tolerating lithium- no GI side effects. No VH/AH. No behavioral concerns. He hopes to be discharged by as he has job interview this coming Friday. Medication Compliance: Yes Side effects from medications: No Review of Systems Review of Systems Constitutional : No Weight loss, No Fever, No Chills, No Fatigue, No Malaise ENT/Mouth : No sore throat, No Rhinorrhea Eyes: No Eye Pain, No Swelling, No Redness Cardiovascular : No Chest Pain, No SOB, No Dyspnea on Exertion, No Orthopnea, No Edema, No Palpitations Respiratory : No Cough, No Sputum, No Wheezing Gastrointestinal : No Nausea, No Vomiting, No Diarrhea, No Constipation, No abdominal Pain, No Hematochezia, No Melena Genitourinary : No Dysuria, No Urinary Frequency, No Hematuria, Musculoskeletal : No joint pain, No Myalgias, No Joint Swelling Skin : No Skin Lesions, No rash Neuro : No Weakness, No Numbness, No Dizziness, No Headache Psych : + Anxiety/Panic, + Depression All other systems reviewed and are negative Yes all other systems are reviewed and are negative Mental Status Exam Mental Status Exam Narrative: Appearance: MO, casually groomed, fair hygiene in NAD Behavior: cooperative Psychomotor: no agitation or retardation noted Speech: clear, normal rate/rhythm/volume, spontaneous TP: linear TC: no signs of psychosis, feeling anxious and restless Mood: anxious Affect: congruent SI: none expressed HI: none expressed AH/VH: not at the moment Delusions: none Insight/judgment: fair x 2. Memory/cog: alert, oriented x 3. Diagnostics Vital Signs (24Hr): Vital Signs - 24 hr 09/23/22 22:15 09/24/22 06:00 09/24/22 14:07 Temperature 97.4 F 97.8 F Pulse Rate 85 90 Respiratory Rate 18 18 Blood Pressure 148/94 H 166/90 H 172/94 H Pulse Oximetry 99 98 97 Oxygen Delivery Method Room Air Room Air Room Air BMI result Body Mass Index 50.5 Labs 09/17/22 21:37 09/19/22 09:25 Medications Medications Current Medications Acetaminophen (Acetaminophen 325 Mg Tablet) 650 mg PO Q6H PRN PRN Reason: Headache/Pain Mild Scale (1-3) Al Hydroxide/Mg Hydroxide (Magnesium Hydrox/Alum Hydrox 30 Ml Oral.Susp) 30 ml PO Q6H PRN PRN Reason: Heartburn/Nausea Albuterol Sulfate (Albuterol Sulfate 90 Mcg 8 Gm Inhaler) 1 puff INHALE RQ4H PRN PRN Reason: wheezing/SOB Last Admin: 09/21/22 20:53 Dose: 1 puff Chlorpromazine HCl (Chlorpromazine Hcl 25 Mg Tablet) 12.5 mg PO Q4H PRN PRN Reason: severe anxiety Clonidine HCl (Clonidine Hcl 0.2 Mg Tablet) 0.2 mg PO BEDTIME [facility]; Protocol Last Admin: 09/23/22 22:22 Dose: 0.2 mg Clonidine HCl (Clonidine Hcl 0.1 Mg Tablet) 0.15 mg PO BID@0900,1500 [facility]; Protocol Last Admin: 09/24/22 14:09 Dose: 0.15 mg [place] Carbonate ([place] Carbonate Er 300 Mg Tablet.Er) 600 mg PO BID [facility] Last Admin: 09/24/22 09:04 Dose: 600 mg Lorazepam (Lorazepam 1 Mg Tablet) 1 mg PO Q4H PRN PRN Reason: Anxiety Last Admin: 09/24/22 14:10 Dose: 1 mg Magnesium Hydroxide (Milk Of Magnesia 30 Ml Oral.Susp) 30 ml PO DAILY PRN PRN Reason: Constipation Metoprolol Succinate (Metoprolol Succinate Er 12.5 Mg Halftab.Er.24h) 12.5 mg PO DAILY [facility]; Protocol Last Admin: 09/24/22 09:04 Dose: 12.5 mg Omeprazole (Omeprazole 40 Mg Capsule.Dr) 40 mg PO BID@0730,2100 [facility] Last Admin: 09/24/22 09:04 Dose: 40 mg Trazodone HCl (Trazodone Hcl 100 Mg Tablet) 100 mg PO BEDTIME PRN PRN Reason: Insomnia Trazodone HCl (Trazodone Hcl 50 Mg Tablet) 50 mg PO BEDTIME PRN PRN Reason: Insomnia Venlafaxine HCl (Venlafaxine Hcl Er 37.5 Mg Cap.Er.24h) 37.5 mg PO DAILY [facility] Last Admin: 09/24/22 09:04 Dose: 37.5 mg Allergies Allergies Allergy/AdvReac Type Severity Reaction Status Date / Time Histamine H2 Inhibitors Allergy Anxiety Verified 09/17/22 21:03 quetiapine [From Seroquel] AdvReac Intermediate RLS Verified 09/19/22 10:44 Assessment & Plan Assessment & Plan (1) Mood disorder: Status: Acute Code(s): F39 - Unspecified mood [affective] disorder Plan Mr. Duke is a 41 year-old male with hx of MDD who has been presenting with increase anxious mood, restless, some visual hallucinations which he is aware are not there, increase depression and suicidal ideation in setting of recent increase of effexor and cannabinoid use (although pt reports over month ago). He was laid off his job in July and is having financial stressors. He reports i s mostly anxious mood and restless triggering suicidal thoughts, which he thinks may be more related to increase in effexor. We discussed risks, benefits and alternative treatment options. He agreed to lower effexor back to 150mg po daily. Will add ativan prn as anxiety and restlessness more in control. PLAN 1. Admit to M3, CV, 15 minutes checks for safety 2. lower effexor to 150mg po daily. 3. add ativan 1mg po q4h prn anxious mood 4. Obtain collateral information 5. Aftercare planning. 09/20 continue taper off effexor as pt reports increase anxiety and restless. May consider different antidepressant pt states his OP provider considering bipolar type 2 dx. 09/21: akathisia from thorazine 100 at HS. DC thorazine 100 and start clonidine 0.1/0.1/0.2 for BP, insomnia, anxiety. DC lisinopril for now. 09/22: slept well on clonidine 0.2 at bedtime. still anxious with 0.1 BID; increase to 0.15 BID. also decrease interval for ativan from Q6H to Q4H at pt request. otherwise continue current mgmt. 09/23: BP elevated, more clonidine may be too sedating. interested in lithium trial with the hypothesis that the anxiety hs is experiencing may be a manifestation of radha, started at 600 BID today. metoprolol added to regimen for BP control, titrate as indicated. T/C clonidine patch as well. decrease effexor to 37.5 mg daily for the next two days, then DC. 09/24 continue current medication. but will add amlodipine for BP. Reason for contiued inpatient stay Substantial Risk for: harm to self Time Spent With Patient Time: Total time managing care of this patient today ____ minutes.
[2022-09-24 14:07] VITALS: BP 172/94; O2SAT 97
[2022-09-24] MEDS: LORazepam 1 MG TABLET PO ×2 (14:10→22:19)
[2022-09-24] MEDS: amLODIPine Besylate 5 MG TABLET PO (17:01)
[2022-09-24 20:00] VITALS: BP 163/94; PULSE 86; RESP 16; TEMP 36.3; O2SAT 98
[2022-09-24] MEDS: cloNIDine HCL 0.2 MG TABLET PO (22:19)
--- NOTE | 2022-09-25 08:42 | P.PNPSI_ITS ---
Subjective Subjective Date of Service: 09/25/22 Reason For Visit: Crisis Subjective Notes: Conditional Voluntary Interim History: Pt reports feeling much better. He denies depressed mood. No SI/HI. No VH/AH. He is sleeping better with cpap. Looking forward to be discharged tomorrow. Medication Compliance: Yes Side effects from medications: No Diagnostics Vital Signs (24Hr): Vital Signs - 24 hr 09/25/22 09:45 09/25/22 14:58 09/25/22 22:30 Temperature 97.8 F 97.8 F Pulse Rate 82 81 90 Respiratory Rate 20 16 Blood Pressure 136/84 168/90 H 148/80 H Pulse Oximetry 99 96 Oxygen Delivery Method Room Air Room Air 09/26/22 08:00 Temperature 97.9 F Pulse Rate 76 Respiratory Rate 20 Blood Pressure 138/76 Pulse Oximetry 96 Oxygen Delivery Method Room Air BMI result Body Mass Index 50.5 Labs 09/17/22 21:37 09/19/22 09:25 Medications Medications Current Medications Acetaminophen (Acetaminophen 325 Mg Tablet) 650 mg PO Q6H PRN PRN Reason: Headache/Pain Mild Scale (1-3) Al Hydroxide/Mg Hydroxide (Magnesium Hydrox/Alum Hydrox 30 Ml Oral.Susp) 30 ml PO Q6H PRN PRN Reason: Heartburn/Nausea Albuterol Sulfate (Albuterol Sulfate 90 Mcg 8 Gm Inhaler) 1 puff INHALE RQ4H PRN PRN Reason: wheezing/SOB Last Admin: 09/21/22 20:53 Dose: 1 puff Amlodipine Besylate (Amlodipine Besylate 5 Mg Tablet) 5 mg PO DAILY [facility]; Protocol Last Admin: 09/26/22 08:29 Dose: 5 mg Chlorpromazine HCl (Chlorpromazine Hcl 25 Mg Tablet) 12.5 mg PO Q4H PRN PRN Reason: severe anxiety Clonidine HCl (Clonidine Hcl 0.2 Mg Tablet) 0.2 mg PO BEDTIME [facility]; Protocol Last Admin: 09/25/22 22:35 Dose: 0.2 mg Clonidine HCl (Clonidine Hcl 0.1 Mg Tablet) 0.15 mg PO BID@0900,1500 [facility]; Protocol Last Admin: 09/26/22 08:23 Dose: 0.15 mg [place] Carbonate ([place] Carbonate Er 300 Mg Tablet.Er) 600 mg PO BID [facility] Last Admin: 09/26/22 08:28 Dose: 600 mg Lorazepam (Lorazepam 1 Mg Tablet) 1 mg PO Q4H PRN PRN Reason: Anxiety Last Admin: 09/25/22 22:35 Dose: 1 mg Magnesium Hydroxide (Milk Of Magnesia 30 Ml Oral.Susp) 30 ml PO DAILY PRN PRN Reason: Constipation Metoprolol Succinate (Metoprolol Succinate Er 12.5 Mg Halftab.Er.24h) 12.5 mg PO DAILY [facility]; Protocol Last Admin: 09/26/22 08:23 Dose: 12.5 mg Omeprazole (Omeprazole 40 Mg Capsule.Dr) 40 mg PO BID@0730,2100 [facility] Last Admin: 09/26/22 08:33 Dose: 40 mg Trazodone HCl (Trazodone Hcl 100 Mg Tablet) 100 mg PO BEDTIME PRN PRN Reason: Insomnia Trazodone HCl (Trazodone Hcl 50 Mg Tablet) 50 mg PO BEDTIME PRN PRN Reason: Insomnia Allergies Allergies Allergy/AdvReac Type Severity Reaction Status Date / Time Histamine H2 Inhibitors Allergy Anxiety Verified 09/17/22 21:03 quetiapine [From Seroquel] AdvReac Intermediate RLS Verified 09/19/22 10:44 Assessment & Plan Assessment & Plan (1) Mood disorder: Status: Acute Code(s): F39 - Unspecified mood [affective] disorder Plan Mr. Duke is a 41 year-old male with hx of MDD who has been presenting with increase anxious mood, restless, some visual hallucinations which he is aware are not there, increase depression and suicidal ideation in setting of recent increase of effexor and cannabinoid use (although pt reports over month ago). He was laid off his job in July and is having financial stressors. He reports is mostly anxious mood and restless triggering suicidal thoughts, which he thinks may be more related to increase in effexor. We discussed risks, benefits and alternative treatment options. He agreed to lower effexor back to 150mg po daily. Will add ativan prn as anxiety and restlessness more in control. PLAN 1. Admit to M3, CV, 15 minutes checks for safety 2. lower effexor to 150mg po daily. 3. add ativan 1mg po q4h prn anxious mood 4. Obtain collateral information 5. Aftercare planning. 09/20 continue taper off effexor as pt reports increase anxiety and restless. May consider different antidepressant pt states his OP provider considering bipolar type 2 dx. 09/21: akathisia from thorazine 100 at HS. DC thorazine 100 and start clonidine 0.1/0.1/0.2 for BP, insomnia, anxiety. DC lisinopril for now. 09/22: slept well on clonidine 0.2 at bedtime. still anxious with 0.1 BID; increase to 0.15 BID. also decrease interval for ativan from Q6H to Q4H at pt request. otherwise continue current mgmt. 09/23: BP elevated, more clonidine may be too sedating. interested in lithium trial with the hypothesis that the anxiety hs is experiencing may be a manifestation of radha, started at 600 BID today. metoprolol added to regimen for BP control, titrate as indicated. T/C clonidine patch as well. decrease effexor to 37.5 mg daily for the next two days, then DC. 09/24 continue current medication. but will add amlodipine for BP. 09/25 continue tx. Reason for contiued inpatient stay Substantial Risk for: stable for discharge Time Spent With Patient Time: Total time managing care of this patient today ____ minutes.
[2022-09-25 09:45] VITALS: BP 136/84; PULSE 82; RESP 20; TEMP 36.6; O2SAT 99
[2022-09-25] MEDS: Lithium Carbonate ER 300 MG TABLET.ER 600 MG PO ×2 (09:49→22:35)
[2022-09-25] MEDS: Omeprazole 40 MG CAPSULE.DR PO ×2 (09:49→22:35)
[2022-09-25] MEDS: Metoprolol Succinate ER 12.5 MG HALFTAB.ER.24H PO (09:50)
[2022-09-25] MEDS: amLODIPine Besylate 5 MG TABLET PO (09:50)
[2022-09-25] MEDS: cloNIDine HCL 0.1 MG TABLET 0.15 MG PO ×2 (09:51→14:58)
[2022-09-25 14:58] VITALS: BP 168/90; PULSE 81
[2022-09-25 22:30] VITALS: BP 148/80; PULSE 90; RESP 16; TEMP 36.6; O2SAT 96
[2022-09-25] MEDS: LORazepam 1 MG TABLET PO (22:35)
[2022-09-25] MEDS: cloNIDine HCL 0.2 MG TABLET PO (22:35)
[2022-09-26 08:00] VITALS: BP 138/76; PULSE 76; RESP 20; TEMP 36.6; O2SAT 96
[2022-09-26] MEDS: cloNIDine HCL 0.1 MG TABLET 0.15 MG PO (08:23)
[2022-09-26] MEDS: Metoprolol Succinate ER 12.5 MG HALFTAB.ER.24H PO (08:23)
[2022-09-26] MEDS: Lithium Carbonate ER 300 MG TABLET.ER 600 MG PO (08:28)
[2022-09-26] MEDS: amLODIPine Besylate 5 MG TABLET PO (08:29)
[2022-09-26] MEDS: Omeprazole 40 MG CAPSULE.DR PO (08:33)
--- NOTE | 2022-09-26 08:55 | P.DS_ITS ---
DS: Providers Provider Date of Service: 09/26/22 Date of admission: 09/18/22 15:18 Primary care physician: Unknown Physician DS: Diagnosis Discharge Diagnosis (1) Mood disorder: Status: Acute DS: Medications Discharge Medications Home Medications: Home Medications Medication Instructions Recorded Confirmed omeprazole 40 mg capsule,delayed 1 cap PO BID 09/17/22 09/17/22 release Previous Rx's Medication Instructions Recorded albuterol sulfate 90 mcg/actuation 1 puff inhalation RQ4H PRN 09/26/22 aerosol inhaler (Ventolin HFA) wheezing/SOB #0 grams amlodipine 5 mg tablet 5 mg PO DAILY #60 tabs 09/26/22 clonidine HCl 0.1 mg tablet 0.15 mg PO BID@0900,1500 #60 tabs 09/26/22 clonidine HCl 0.2 mg tablet 0.2 mg PO BEDTIME #30 tabs 09/26/22 lithium carbonate 600 mg capsule 600 mg PO BID #60 caps 09/26/22 Mental Status Exam Mental Status Exam Narrative: Appearance: MO, casually groomed, fair hygiene in NAD Behavior: cooperative Psychomotor: no agitation or retardation noted Speech: clear, normal rate/rhythm/volume, spontaneous TP: linear TC: no signs of psychosis, future oriented. Mood: good Affect: congruent, bright non labile SI: none expressed HI: none expressed AH/VH: none Delusions: none Insight/judgment: fair x 2. Memory/cog: alert, oriented x 3. Data Data Completed and Pending Completed studies during hospitalization [Text1]: 09/19/22 09/19/22 09:25 09:25 Sodium 140 Potassium 4.4 Chloride 102 Carbon Dioxide 26 Anion Gap 16 BUN 18 H Creatinine 0.91 Estim Creat Clear Calc 182.5 Estimated GFR > 60 Fasting Glucose 151 H Estimat Average Glucose 137 Hemoglobin A1c % 6.4 Calcium 9.2 Total Bilirubin 0.5 AST 23 ALT 43 H Alkaline Phosphatase 115 Total Protein 7.0 Albumin 4.4 Triglycerides 231 Cholesterol 263 LDL Cholesterol, Calc 176 HDL Cholesterol 41 Vitamin B12 642 Folate 15.2 TSH 1.32 DS: Summary Hospital Course Hospital Course: Subjective Notes: [place]ay Warning (given and shows understanding) and Conditional Voluntary Narrative: Mr. Duke is a 41 year-old male with hx of MDD who self presented to [facility] ED reporting increase anxiety, racing thoughts, suicidal ideation with fleeting thoughts of cutting himself. He also reported seeing shadows which he was aware were not there whic is new for the past 1 month or so on and off. He reports using edibles, but more than a month ago. He also reports recent increase in Effexor to 225mg po daily 3-4 weeks ago, which in turn seemed to have increase his anxiety. His utox is positive for cannabis. On the unit, pt presents as very anxious and restless. He reports poor sleep and poor appetite. He reports not feeling comfortable being in milieu as he is feeling restless but states that when he tried to lay down in bed he starts having racing thoughts. He reports anxious mood and restlessness seems to trigger suicidal thoughts more than the depression. He denies VH/AH now, but states few days ago he thought he was seeing someone but then turned and it wasn't there. He denies any other substance use. He reports he has not had suicidal thoughts since he was a teen. He denies hx of suicide attempts. He was laid off his job but states he is positive he will find a new one once he feels better. He reports his is very supportive, no other sources of stress although struggling financially after he lost his job. Past Psychiatric History: Inpt: none OP: [facility][1] Past medication trials: wellbutrin, effexor, seroquel (RLS) Suicide attempt: denies Medical Evaluation Reviewed: Yes HOSPITAL COURSE On the unit, Mr. Duke was admitted on a CV and placed on 15 minutes checks for safety. Pt reported feeling restless after effexor was increased from 150mg po daily to 225mg po daily. He reported restlessness and anxiety triggering suicidal thoughts which he had not had since he was a teen. No hx of suicide attempts. Pt reports hx of depression but wondering with his OP provider if some milder episodes of increased energy, expansive mood may suggest bipolar diso rder. He reported for the last month seeing some shadows or hearing some noises that he then realized others couldn't hear or shadows would disappear. It does not sound as well formed psychosis but he states this started after increase in effexor and some canabinoids use. We discussed risks, benefits and alternative treatment options. Plan to taper him off effexor, which he tolerated well. He used combination of ativan for anxiety. He was later started on clonidine with good effect. It is fair to say that restless and anxious mood significantly decrease as effexor was discontinued and clonidine added. However, to address his mood, lithium was started. Futher clarification in terms of dx would need to happen outpatient once potential side effects of effexor and cannabinoids are not a factor. Status at Discharge Cognitive/behavioral status at discharge: Pt with bright, non labile affect. No SI/HI. No VH/AH. Future oriented. No signs of aggression towards self or others. Functional status at discharge: independent ambulation Overall status at discharge: patient is progressing back to baseline Time Spent with Patient Time attestation: Total time managing care of this patient today ____ minutes. Time spent: Greater than 30 minutes Discharge Plan Discharge Anticipated Discharge Date/Time: 09/26/22 08:49 Patient Disposition: Home, Self-Care Discharge Diagnosis: Mood disorder r/o Bipolar disorder Referrals: Saad Lopez (Psychiatry) [Other] - 09/26/22 8:30 pm Physician,Unknown J [Primary Care Provider] - 1 Week Discharge Medications: New clonidine HCl 0.1 mg Tablet 0.15 mg PO BID@0900,1500 Qty: 60 0RF Protocol: Hold for SBP< HOLD for SBP < : 90 amlodipine 5 mg Tablet 5 mg PO DAILY Qty: 60 0RF Protocol: Hold for SBP< HOLD for SBP < : 90 clonidine HCl 0.2 mg Tablet 0.2 mg PO BEDTIME Qty: 30 0RF Protocol: Hold for SBP< HOLD for SBP < : 90 albuterol sulfate [Ventolin HFA] 90 mcg/actuation Hfa Aerosol Inhaler 1 puff inhalation RQ4H PRN (Reason: wheezing/SOB) Qty: 0 0RF lithium carbonate 600 mg capsule 600 mg PO BID Qty: 60 0RF Continued omeprazole 40 mg capsule,delayed release(DR/EC) 1 cap PO BID Discontinued trazodone 50 mg tablet 2 tab PO BEDTIME PRN (Reason: Insomnia) venlafaxine 225 mg tablet extended release 24hr 1 tab PO DAILY lisinopril 40 mg Tablet 40 mg PO DAILY Discharge Orders: Discharge Order (Routine); Ordered 09/26/22 Ordered By: Pinky Verdugo Diet: Regular diet Activity on Discharge: As tolerated Stand Alone Forms: Patient Portal Discharge page Care Plan Goals: 1. Maintain mood 2. No SI/HI Health Concerns: Follow up with PCP for hypertension management Plan of Treatment: 1. Take medications as prescribed 2. Go to nearest ED or call 911 in event of emergency Assessment: Pt with bright, non labile affect. No SI/HI. No VH/AH. Future oriented. No signs of aggression towards self or others.
[2022-09-26 10:30] LABS: TSH reflex Free T4 1.45 uIU/mL (0.32-4.0)
[2022-09-26] MEDS: LORazepam 1 MG TABLET PO (10:35)
--- NOTE | 2022-09-26 11:38 | PC.NURSE ---
Pt ready and aware of discharge. His mood and affect is bright and cheerful . Discharge instructions appointments and medications reviewed. He verbalized understanding. He denies SI/HI/AH/VH at this time.
== END 2022-09-26 11:30 | disposition home or self-care (01) | DRG 753 ==
LOC: HO.ED 09-18 00:36 → HO.PADLT16 09-18 15:30
PROVIDERS: Admitting Provider Social Worker; Emergency Provider Internal Medicine; Visit Provider Social Worker
DX: F39 Unspecified mood [affective] disorder (principal); R45.851 Suicidal ideations; Z20.822 Contact with and (suspected) exposure to COVID-19; Z88.8 Allergy status to other drugs, medicaments and biological substances; Z79.899 Other long term (current) drug therapy
CPT/HCPCS: 36415; 80048; 80053; 80061; 80143; 80178; 80179; 80307; 82077; 82607; 82746; 83036; 84443; 85027; 87635; 99285; S9485